=== PATIENT | male | born 1985 | race Caucasian/White ===

== ENCOUNTER 2017-08-16 08:21 | Inpatient (IN) | payer OTHER ==
[2017-08-16 08:53] VITALS: BMI 22.6
--- NOTE | 2017-08-16 10:24 | HP ---
COWS - Scale Resting Pulse: 0= [place] 80 or Below Sweatin=Flushed/Facial Moisture Restless Observation: 1= Difficult to Sit Still Pupil Size: 1= Pupils >than Normal Bone or Joint Aches: 1= Mild Discomfort Runny Nose/ Eye Tearin= Runny Nose/Eyes GI Upset > 30mins: 2= Nausea/Diarrhea (nausea only) Tremor Observation: 2= Slight Tremor Visible Yawning Observation: 0= None Anxiety or Irritability: 1=Feels Anxious/Irritable Goose Flesh Skin: 0=Smooth Skin COWS Score: 12 Admission [facility] Chief Complaint: Here for heroin withdrawal and wanting detox. Allergies/Adverse Reactions: Allergies Allergy/AdvReac Type Severity Reaction Status Date / Time No Known Allergies Allergy Verified 08/16/17 09:09 History of Present Illness: 31 yom with hx heroin use use since age 29 intra-nasally. Smokes marijuana oil q 3 days. Smokes 1 pack cigarettes per day. past hx use of cocaine and ecstasy from age 19 but stopped about 3 years ago. Hx. asthma, heart palpitations, and GERD. States was able to maintain sobriety for 1 and 1/2 years while incarcerated and just started re-using 4 months ago. Exam Limitations: No Limitations - Ebola screening Have you traveled outside of the country in the last 21 days: No Have you had contact with anyone from an Ebola affected area: No Have you been sick,other than usual withdrawal symptoms: No - Review of Systems Constitutional: Changes in sleep (Difficulty staying asleep. No meds) EENT: reports: Nose Congestion, Dental Problems (Missing teeth. Denies difficulty chewing or swallowing), Other (Vocal polyp removed) Respiratory: reports: Other (Hx asthma - no recent exacerbation) Cardiac: reports: Chest Pain (when running up stairs), Palpitations (w/ running stairs, when having an asthma attack) GI: reports: Constipated (BM daily but stool is hard.), Indigestion (hx acid reflux) : reports: No Symptoms Reported Musculoskeletal: reports: Joint Pain (Knees and elbows r/t past hx trauma) Integumentary: reports: No Symptoms Reported Neuro: reports: Headache (Hx migraines - triggered by sugar) Endocrine: reports: No Symptoms Reported Hematology: reports: No Symptoms Reported Psychiatric: reports: Orientated x3, Agitated, Anxious, Depressed (Denies suicide ideation) Patient History - Patient Medical History Hx Anemia: No Hx Asthma: Yes (Usually triggered by smoking and is wheezing and heart palpatations) Hx Chronic Obstructive Pulmonary Disease (COPD): No Hx Cardiac Disorders: Yes (Heart palpatations ) Hx Hypertension: No Hx Hypercholesterolemia: No HX Cerebrovascular Accident: No Hx Seizures: No Hx Diabetes: No Hx Gastrointestinal Disorders: Yes (acid reflux - takes prn zantac and TUMS) Hx Liver Disease: No Hx Genitourinary Disorders: No Hx Sexually Transmitted Disorders: No (DENIES) Hx Renal Disease (ESRD): No Hx Thyroid Disease: No Hx Human Immunodeficiency Virus (HIV): No (NEGATIVE HX) Hx Hepatitis C: No Hx Depression: Yes (NOT ON MEDS. Denies suicide or violent ideation) Hx Suicide Attempt: No (DENIES) Hx Bipolar Disorder: No Hx Schizophrenia: No Other Medical History: ADHD and anxiety - Patient Surgical History Past Surgical History: Yes Hx Neurologic Surgery: No Hx Cataract Extraction: No Hx Cardiac Surgery: No Hx Lung Surgery: No Hx Breast Surgery: No Hx Breast Biopsy: No Hx Abdominal Surgery: No Hx Appendectomy: No Hx Cholecystectomy: No Hx Genitourinary Surgery: No Hx Section: No Hx Orthopedic Surgery: No Other Surgical History: VOCAL CORD SURGERY MAR 2017 Anesthesia Reaction: No - PPD History Previous Implant?: Yes Documented Results: Negative w/proof Implanted On Prior [facility] Admission?: Yes Date: 10/29/14 Results: NEGATIVE PPD to be Administered?: Yes - Smoking Cessation Smoking history: Current every day smoker Have you smoked in the past 12 months: Yes Aproximately how many cigarettes per day: 20 Hx Chewing Tobacco Use: No Initiated information on smoking cessation: Yes 'Breaking Loose' booklet given: 08/16/17 - Substance & Tx. History Hx Alcohol Use: No Hx Substance Use: Yes Substance Use Type: Heroin, Marijuana Hx Substance Use Treatment: Yes (Several detox attempts. ) - Substances Abused Heroin Route: Inhalation Frequency: Daily Amount used: 8-10 BAGS Age of first use: 29 Date of Last Use: 08/16/17 Marijuana/Hashish Route: Smoking Frequency: 1-2 times per week Amount used: 1 gm Age of first use: 13 Date of Last Use: 08/15/17 Family Disease History - Family Disease History Family Disease History: Diabetes: Grandparent Admission Physical Exam [facility] - Vital Signs Vital Signs: Vital Signs - 24 hr 08/16/17 08:51 Temperature 97.8 F Pulse Rate 64 Respiratory 17 Rate Blood Pressure 144/93 - Physical General Appearance: Yes: Nourished, Appropriately Dressed, Tremorous, Anxious HEENTM: Yes: EOMI, Hearing grossly Normal, Normal Voice, DIANNA Respiratory: Yes: Lungs Clear, Normal Breath Sounds, No Respiratory Distress Neck: Yes: No masses,lesions,Nodules, Supple Breast: Yes: Breast Exam Deferred Cardiology: Yes: Regular Rhythm, Regular Rate, S1, S2 Abdominal: Yes: Non Tender, Flat, Soft, Increased Bowel Sounds Genitourinary: Yes: Within Normal Limits Back: Yes: Normal Inspection Musculoskeletal: Yes: full range of Motion, Gait Steady Extremities: Yes: Normal Capillary Refill, Normal Inspection, Normal Range of Motion, Non-Tender, Tremors Neurological: Yes: diet clerk II-XII NML intact, Fully Oriented, Motor Strength 5/5, Normal Response Integumentary: Yes: Normal Color, Dry, Warm (Dehydration) Lymphatic: Yes: Within Normal Limits - Diagnostic (1) Opioid dependence with withdrawal Current Visit: Yes Status: Acute (2) Nicotine dependence unspecified, with withdrawal Current Visit: Yes Status: Acute Qualifiers: Nicotine product type: cigarettes Qualified Code(s): F17.213 - Nicotine dependence, cigarettes, with withdrawal (3) Cannabis dependence Current Visit: Yes Status: Chronic (4) Dehydration Current Visit: Yes Status: Acute Cleared for Admission [facility] - Detox or Rehab [facility] Level of Care: Medically Managed Detox Regimen/Protocol: Methadone [facility] Breath Alcohol Content Breath Alcohol Content: 0 Urine Drug Screen - Results Drug Screen Negative: No Urine Drug Screen Results: THC-Marijuana, OPI-Opiates, BZO-Benzodiazepines, OXY- Oxycodone
[2017-08-16] MEDS ORDERED: P-EPHED 60MG/TRIPROLIDI 2.5MG TABLET PO PRN (10:59)
[2017-08-16] MEDS ORDERED: IBUPROFEN 400 MG TABLET (FP) PO PRN (10:59)
[2017-08-16] MEDS ORDERED: LOPERAMIDE HCL 2 MG CAPSULE PO PRN (10:59)
[2017-08-16] MEDS ORDERED: hydrOXYzine PAMOATE 50 MG CAPSULE (FP) PO PRN (10:59)
[2017-08-16] MEDS ORDERED: MAG HYDROX/AL HYDROX/SIMETH 30 ML UNIT-DOSE CUP PO PRN (10:59)
[2017-08-16] MEDS ORDERED: MAGNESIUM CITRATE 300 ML BOTTLE PO PRN (10:59)
[2017-08-16] MEDS ORDERED: MENTHOL/PHENOL 1 EACH UD MM PRN (10:59)
[2017-08-16] MEDS ORDERED: METHADONE HCL 10 MG TABLET (FOR DETOX USE ONLY) PO ONE ×2 (10:59→23:00)
[2017-08-16] MEDS ORDERED: MAGNESIUM HYDROX 2400MG/30ML ORAL SUSPENSION 30 ML CUP PO PRN (10:59)
[2017-08-16] MEDS ORDERED: ACETAMINOPHEN 325 MG TABLET (FP) PO PRN (10:59)
[2017-08-16] MEDS ORDERED: guaiFENesin/D-METHORPHAN HB 10 ML UNIT-DOSE CUPS PO PRN (10:59)
[2017-08-16] MEDS ORDERED: ALBUTEROL SO4 18 GM HFA INHALER IH PRN (11:04)
[2017-08-16] MEDS: diazePAM 5 MG TABLET PO PRN ×3 (11:51→22:26)
[2017-08-16 18:55] LABS: URINE APPEARANCE CLEAR; URINE BILIRUBIN NEGATIVE (<2.0 mg/dL); URINE COLOR YELLOW; URINE GLUCOSE (UA) NEGATIVE (NEGATIVE); URINE KETONE NEGATIVE (NEGATIVE); URINE LEUK ESTERASE NEGATIVE (NEGATIVE); URINE NITRITE NEGATIVE (NEGATIVE); URINE PROTEIN NEGATIVE (NEGATIVE); URINE UROBILINOGEN NEGATIVE mg/dL (0.2-1.0)
[2017-08-16] MEDS ORDERED: MELATONIN 5 MG TABLETS PO PRN (22:00)
[2017-08-16] MEDS: THIAMINE HCL 100 MG TABLET (FP) PO SCH (22:26)
[2017-08-17] MEDS: diazePAM 5 MG TABLET PO PRN ×5 (05:31→22:59)
[2017-08-17] MEDS ORDERED: METHADONE HCL 10 MG TABLET (FOR DETOX USE ONLY) PO ONE (10:00)
[2017-08-17 10:09] LABS: HEMATOCRIT 43.4 % (35.4-49); HEMOGLOBIN 14.7 GM/dL (11.7-16.9); MCH 30.8 pg (25.7-33.7); MCHC 33.9 g/dl (32.0-35.9); MEAN CELL VOLUME 90.7 fl (80-96); MEAN PLT VOLUME 9.6 fl (7.5-11.1); PLATELET COUNT 195 K/MM3 (134-434); RBC 4.79 M/mm3 (4.00-5.60); RDW 13.7 % (11.9-15.9); WHITE BLOOD COUNT 6.6 K/mm3 (4.0-10.0)
[2017-08-17 10:18] LABS: CHLORIDE 102 mmol/L (98-107); SODIUM 139 mmol/L (136-145)
[2017-08-17] MEDS: NICOTINE POLACRILEX 2 MG GUM BUC PRN (10:34)
[2017-08-17] MEDS: NICOTINE 21 MG/24 HOURS TOPICAL PATCH TD SCH (10:34)
[2017-08-17] MEDS: PRENATAL VITAMINS W/ FOLIC ACID TABLET (FP) PO SCH (10:34)
[2017-08-17 10:36] LABS: ALBUMIN 3.7 g/dl (3.4-5.0); ALK PHOS 59 U/L (45-117); ANION GAP 5 (8-16); BILIRUBIN,TOTAL 0.3 mg/dL (0.2-1.0); BLOOD UREA NITROGEN 8 mg/dL (7-18); CALCIUM 8.9 mg/dL (8.5-10.1); CO2 32 mmol/L (21-32); CREATININE 0.7 mg/dL (0.7-1.3); GLUCOSE,RANDOM 88 mg/dL (74-106); SGOT/AST 27 U/L (15-37); SGPT/ALT 32 U/L (12-78); TOT PROT 7.1 g/dl (6.4-8.2)
--- NOTE | 2017-08-17 10:36 | CONSULT ---
[facility] Psychiatric Consult - Data Date of interview: 08/17/17 Admission source: [facility] Identifying data: Patient is a 31 year old single male, domiciled, without kids , and currently unemployed. This is one of multiple admissions for patient. Pt. admitted to for opiate and benzodiazepine dependence. Substance Abuse History: Smoking Cessation. Smoking history: Current every day smoker. Have you smoked in the past 12 months: Yes. Aproximately how many cigarettes per day: 20. Hx Chewing Tobacco Use: No. Initiated information on smoking cessation: Yes. 'Breaking Loose' booklet given: 08/16/17. - Substance & Tx. History. Hx Alcohol Use: No. Hx Substance Use: Yes. Substance Use Type : Heroin, Marijuana. Hx Substance Use Treatment: Yes (Several detox attempts. ) . - Substances Abused. Heroin. Route: Inhalation. Frequency: Daily. Amount used: 8-10 BAGS. Age of first use: 29. Date of Last Use: 08/16/17. Marijuana/Hashish. Route: Smoking. Frequency: 1-2 times per week. Amount used : 1 gm. Age of first use: 13. Date of Last Use: 08/15/17 Psychiatric History: Patient denies h/o psychiatric hospitalization, outpatient care, and suicide attempt. Physical/Sexual Abuse/Trauma History: Denies. Mental Status Exam - Mental Status Exam Alert and Oriented to: Time, Place, Person Cognitive Function: Good Patient Appearance: Unkempt Mood: Withdrawn Affect: Mood Congruent Patient Behavior: Cooperative Speech Pattern: Appropriate Voice Loudness: Moderately Soft/Quiet Thought Process: Intact, Goal Oriented Thought Disorder: Not Present Hallucinations: Denies Suicidal Ideation: Denies Homicidal Ideation: Denies Insight/Judgement: Poor Sleep: Fair Appetite: Fair Muscle strength/Tone: Normal Gait/Station: Normal Psychiatric Findings - Problem List ([place] 1, 2,3) (1) Nicotine dependence unspecified, with withdrawal Current Visit: Yes Status: Acute Qualifiers: Nicotine product type: cigarettes Qualified Code(s): F17.213 - Nicotine dependence, cigarettes, with withdrawal (2) Opioid dependence with withdrawal Current Visit: Yes Status: Acute (3) Cannabis dependence Current Visit: Yes Status: Chronic (4) Substance-induced sleep disorder Current Visit: Yes Status: Acute - Initial Treatment Plan Initial Treatment Plan: Psychoeducation provided. Detoxification in progress Observation. Patient made aware that melatonin 5mg prn for insomnia is available.
--- NOTE | 2017-08-17 12:12 | PN ---
[facility] COWS - Scale Resting Pulse: 0= [place] 80 or Below Sweatin= Chills/Flushing Restless Observation: 3= Extraneous Movement Pupil Size: 0= Normal to Room Light Bone or Joint Aches: 4=Acute Joint/Muscle Pain Runny Nose/ Eye Tearin= None GI Upset > 30mins: 1= Stomach Cramp Tremor Observation of Outstretched Hands: 1= Tremor [place], Not Seen Yawning Observation: 1= 1-2x During Session Anxiety or Irritability: 2=Irritable/Anxious Goose Flesh Skin: 0=Smooth Skin COWS Score: 13 S Progress Note (SOAP) Subjective: ANXIETY,FATIGUE,INTERMITTENT SLEEP. Objective: 08/17/17 12:18 Vital Signs 08/17/17 08/17/17 06:21 09:16 Temperature 98 F 97.3 F L Pulse Rate 58 L 51 L Respiratory 16 18 Rate Blood Pressure 114/67 113/73 Laboratory Tests 08/16/17 08/17/17 08/17/17 18:00 07:30 07:30 WBC 6.6 RBC 4.79 Hgb 14.7 Hct 43.4 MCV 90.7 MCH 30.8 MCHC 33.9 RDW 13.7 Plt Count 195 MPV 9.6 Sodium Potassium Chloride Carbon Dioxide Anion Gap BUN Creatinine Creat Clearance w eGFR Random Glucose Calcium Total Bilirubin AST ALT Alkaline Phosphatase Total Protein Albumin Urine Color Yellow Urine Appearance Clear Urine pH 6.0 Ur Specific [place] 1.016 Urine Protein Negative Urine Glucose (UA) Negative Urine Ketones Negative Urine Blood Negative Urine Nitrite Negative Urine Bilirubin Negative Urine Urobilinogen Negative Ur Leukocyte Esterase Negative RPR Titer HIV 1&2 Antibody Screen Negative HIV P24 Antigen Negative 08/17/17 08/17/17 07:30 07:30 WBC RBC Hgb Hct MCV MCH MCHC RDW Plt Count MPV Sodium 139 Potassium 5.0 Chloride 102 Carbon Dioxide 32 Anion Gap 5 L BUN 8 Creatinine 0.7 Creat Clearance w eGFR > 60 Random Glucose 88 Calcium 8.9 Total Bilirubin 0.3 AST 27 D ALT 32 D Alkaline Phosphatase 59 Total Protein 7.1 Albumin 3.7 Urine Color Urine Appearance Urine pH Ur Specific [place] Urine Protein Urine Glucose (UA) Urine Ketones Urine Blood Urine Nitrite Urine Bilirubin Urine Urobilinogen Ur Leukocyte Esterase RPR Titer Nonreactive HIV 1&2 Antibody Screen HIV P24 Antigen Assessment: 08/17/17 12:18 WITHDRAWAL SX Plan: CONTINUE DETOX INCREASE PO FLUIDS.
--- NOTE | 2017-08-17 22:12 | EKG ---
Test Reason : Blood Pressure : / mmHG Vent. Rate : 059 BPM Atrial Rate : 059 BPM P-R Int : 118 ms QRS Dur : 082 ms QT Int : 450 ms P-R-T Axes : 034 077 038 degrees QTc Int : 445 ms SINUS BRADYCARDIA WITH SINUS ARRHYTHMIA OTHERWISE NORMAL ECG NO PREVIOUS ECGS AVAILABLE Confirmed by BENI WALDRON, KISHORE ([id number]) on 08/17/2017 10:12:24 PM Referred By: Александр Marroquin Confirmed By:KISHORE BAZAN MD
[2017-08-17] MEDS: THIAMINE HCL 100 MG TABLET (FP) PO SCH (22:19)
[2017-08-18] MEDS: diazePAM 5 MG TABLET PO PRN ×2 (03:33→10:42)
[2017-08-18] MEDS ORDERED: METHADONE HCL 5 MG TABLET (FOR DETOX USE ONLY) PO ONE ×2 (10:00)
[2017-08-18] MEDS: NICOTINE 21 MG/24 HOURS TOPICAL PATCH TD SCH (10:41)
[2017-08-18] MEDS: PRENATAL VITAMINS W/ FOLIC ACID TABLET (FP) PO SCH (10:41)
[2017-08-18] MEDS: NICOTINE POLACRILEX 2 MG GUM BUC PRN (10:43)
--- NOTE | 2017-08-18 12:12 | PN ---
S COWS - Scale Resting Pulse: 0= [place] 80 or Below Sweatin= Chills/Flushing Restless Observation: 3= Extraneous Movement Pupil Size: 2= Moderately Dilated Bone or Joint Aches: 1= Mild Discomfort Runny Nose/ Eye Tearin= Nasal Congestion GI Upset > 30mins: 0= None Tremor Observation of Outstretched Hands: 2= Slight Tremor Visible Yawning Observation: 1= 1-2x During Session Anxiety or Irritability: 1=Feels Anxious/Irritable Goose Flesh Skin: 0=Smooth Skin COWS Score: 12 S Progress Note (SOAP) Subjective: ANXIETY,[place]WA[place],CHILLS,FATIGUE. Objective: 08/18/17 12:07 Vital Signs 08/18/17 08/18/17 06:14 09:21 Temperature 98.6 F 97.6 F Pulse Rate 49 L 51 L Respiratory 18 16 Rate Blood Pressure 110/76 105/68 Laboratory Tests 08/16/17 08/17/17 08/17/17 18:00 07:30 07:30 WBC 6.6 RBC 4.79 Hgb 14.7 Hct 43.4 MCV 90.7 MCH 30.8 MCHC 33.9 RDW 13.7 Plt Count 195 MPV 9.6 Sodium Potassium Chloride Carbon Dioxide Anion Gap BUN Creatinine Creat Clearance w eGFR Random Glucose Calcium Total Bilirubin AST ALT Alkaline Phosphatase Total Protein Albumin Urine Color Yellow Urine Appearance Clear Urine pH 6.0 Ur Specific [place] 1.016 Urine Protein Negative Urine Glucose (UA) Negative Urine Ketones Negative Urine Blood Negative Urine Nitrite Negative Urine Bilirubin Negative Urine Urobilinogen Negative Ur Leukocyte Esterase Negative RPR Titer HIV 1&2 Antibody Screen Negative HIV P24 Antigen Negative 08/17/17 08/17/17 07:30 07:30 WBC RBC Hgb Hct MCV MCH MCHC RDW Plt Count MPV Sodium 139 Potassium 5.0 Chloride 102 Carbon Dioxide 32 Anion Gap 5 L BUN 8 Creatinine 0.7 Creat Clearance w eGFR > 60 Random Glucose 88 Calcium 8.9 Total Bilirubin 0.3 AST 27 D ALT 32 D Alkaline Phosphatase 59 Total Protein 7.1 Albumin 3.7 Urine Color Urine Appearance Urine pH Ur Specific [place] Urine Protein Urine Glucose (UA) Urine Ketones Urine Blood Urine Nitrite Urine Bilirubin Urine Urobilinogen Ur Leukocyte Esterase RPR Titer Nonreactive HIV 1&2 Antibody Screen HIV P24 Antigen Assessment: 08/18/17 12:12 WITHDRAWAL SX Plan: CONTINUE DETOX
[2017-08-18 13:25] VITALS: BP 108/69; PULSE 65; TEMP 98.4
--- NOTE | 2017-08-18 15:45 | DS ---
[facility] Detox Discharge Summary Admission Date: 08/16/17 Discharge Date: 08/18/17 - History Present History: Opioid Dependence Additional Comments: PT SIGNED OUT AMA STATING HIS MOTHER IS COMING TO PICK HIM UP THEY PLAN TO GO OUT OF STATE TOMORROW. ALERT O X 3. Pertinent Past History: PLEASE SEE DX BELOW - Physical Exam Results Vital Signs: Vital Signs Temperature 98.4 F 08/18/17 13:24 Pulse Rate 65 08/18/17 13:24 Respiratory Rate 18 08/18/17 13:24 Blood Pressure 108/69 08/18/17 13:24 O2 Sat by Pulse Oximetry (%) Pertinent Admission Physical Exam Findings: WITHDRAWAL SX Laboratory Tests 08/16/17 08/17/17 08/17/17 18:00 07:30 07:30 WBC 6.6 RBC 4.79 Hgb 14.7 Hct 43.4 MCV 90.7 MCH 30.8 MCHC 33.9 RDW 13.7 Plt Count 195 MPV 9.6 Sodium Potassium Chloride Carbon Dioxide Anion Gap BUN Creatinine Creat Clearance w eGFR Random Glucose Calcium Total Bilirubin AST ALT Alkaline Phosphatase Total Protein Albumin Urine Color Yellow Urine Appearance Clear Urine pH 6.0 Ur Specific [place] 1.016 Urine Protein Negative Urine Glucose (UA) Negative Urine Ketones Negative Urine Blood Negative Urine Nitrite Negative Urine Bilirubin Negative Urine Urobilinogen Negative Ur Leukocyte Esterase Negative RPR Titer HIV 1&2 Antibody Screen Negative HIV P24 Antigen Negative 08/17/17 08/17/17 07:30 07:30 WBC RBC Hgb Hct MCV MCH MCHC RDW Plt Count MPV Sodium 139 Potassium 5.0 Chloride 102 Carbon Dioxide 32 Anion Gap 5 L BUN 8 Creatinine 0.7 Creat Clearance w eGFR > 60 Random Glucose 88 Calcium 8.9 Total Bilirubin 0.3 AST 27 D ALT 32 D Alkaline Phosphatase 59 Total Protein 7.1 Albumin 3.7 Urine Color Urine Appearance Urine pH Ur Specific [place] Urine Protein Urine Glucose (UA) Urine Ketones Urine Blood Urine Nitrite Urine Bilirubin Urine Urobilinogen Ur Leukocyte Esterase RPR Titer Nonreactive HIV 1&2 Antibody Screen HIV P24 Antigen - Treatment Hospital Course: Discharged Condition Good - Medication Discharge Medications: Ambulatory Orders Albuterol Sulfate Inhaler - [Ventolin Hfa Inhaler -] 1 - 2 inh PO Q4H 08/16/17 - Diagnosis (1) Dehydration Status: Acute (2) Opioid dependence with withdrawal Status: Acute (3) Nicotine dependence Status: Acute Qualifiers: Nicotine product type: cigarettes Substance use status: in withdrawal Qualified Code(s): F17.213 - Nicotine dependence, cigarettes, with withdrawal (4) Cannabis dependence Status: Acute - AMA Did Patient Leave Against Medical Advice: Yes (AMA)
[2017-08-19] MEDS ORDERED: METHADONE HCL 5 MG TABLET (FOR DETOX USE ONLY) PO ONE (10:00)
[2017-08-19] MEDS ORDERED: METHADONE HCL 10 MG TABLET (FOR DETOX USE ONLY) PO ONE (10:00)
[2017-08-20] MEDS ORDERED: METHADONE HCL 5 MG TABLET (FOR DETOX USE ONLY) PO ONE (06:00)
[2017-08-20] MEDS ORDERED: METHADONE HCL 10 MG TABLET (FOR DETOX USE ONLY) PO ONE (10:00)
[2017-08-21] MEDS ORDERED: METHADONE HCL 5 MG TABLET (FOR DETOX USE ONLY) PO ONE (06:00)
== END 2017-08-18 14:12 | disposition left against medical advice (07) | DRG 770 ==
LOC: YASAS 08:21 → Y3N 11:25
PROVIDERS: ADMIT Family Medicine Addiction Medicine; ATTEND Family Medicine Addiction Medicine
PROC: HZ2ZZZZ Detoxification Services for Substance Abuse Treatment (ICD-10-PCS; principal; 2017-08-16)
DX: F11.23 Opioid dependence with withdrawal (principal); F12.20 Cannabis dependence, uncomplicated; F17.213 Nicotine dependence, cigarettes, with withdrawal; F19.24 Other psychoactive substance dependence with psychoactive substance-induced mood disorder; F32.9 Major depressive disorder, single episode, unspecified; F41.9 Anxiety disorder, unspecified; F90.9 Attention-deficit hyperactivity disorder, unspecified type; J45.909 Unspecified asthma, uncomplicated; K21.9 Gastro-esophageal reflux disease without esophagitis; Z86.79 Personal history of other diseases of the circulatory system
CPT/HCPCS: 36415; 80053; 81003; 85027; 86593; 87389; 93005; 93010